=== PATIENT | male | born 1960 | race Hispanic/Latino ===

== ENCOUNTER 2019-09-26 06:45 | Day surgery (SDC) | payer BC ==
[2019-09-26] MEDS ORDERED: SODIUM CHLORIDE 0.9% 1000 ML 1,000 ML IV SCH (07:15)
--- NOTE | 2019-09-26 07:36 | Anesthesia Consultation ---
Anesthesia Consult and Med Hx Date of service: 09/26/19 - Airway Anesthetic Teeth Evaluation: Good, Crowns ROM Head & Neck: Adequate Mental/Hyoid Distance: Inadequate Mallampati Class: Class II Intubation Access Assessment: Probably Good - Pulmonary Exam CTA: Yes - Cardiac Exam Cardiac Exam: RRR - Pre-Operative Health Status ASA Pre-Surgery Classification: ASA2 Proposed Anesthetic Plan: MAC - Pulmonary Hx Smoking: No (Quit in January 2019 adter 20 years) Hx Asthma: No Hx Respiratory Symptoms: No SOB: No COPD: No Hx Sleep Apnea: No - Cardiovascular System Hx Hypertension: Yes - Central Nervous System Hx Neuromuscular Disorder: No Hx Seizures: No Hx Back Pain: No Hx Psychiatric Problems: Yes (Anxiety) - Gastrointestinal Hx Ulcer: Yes Hx Gastroesophageal Reflux Disease: Yes - Endocrine Hx Renal Disease: No Hx Liver Disease: No Hx Non-Insulin Dependent Diabetes: No - Other Systems Hx Alcohol Use: No Hx Obesity: Yes (BMI- 35.3kg) - Additional Comments Anesthesia Medical History Comments: Patient denied previous anesthesia complications.
--- NOTE | 2019-09-26 07:38 | Anesthesia Day of Surgery ---
Anesthesia Day of Surgery - Day of Surgery Patient Examined: Yes Patient H&P Reviewed: Yes Patient is NPO: Yes
[2019-09-26] MEDS ORDERED: PROPOFOL 200 MG/20 ML VIAL IV ONE ×3 (08:18)
--- NOTE | 2019-09-26 08:42 | Procedure Note ---
Date of procedure: 09/26/19 Pre-op diagnosis: Colon Polyp Screening Post-op diagnosis: other (No colon Polyps noted/Moderate, Left Colon Diverticuli/ Minor,Internal Hemorrhoid/Normal, Terminal, Ileal Mucosa) Procedure: Colonoscopy Anesthesia: MAC Surgeon: ERICA VIZCARRA Estimated blood loss: none Pathology: none Condition: stable Disposition: same day (Encourage fiber intake. Resume home medication and follow up in 1 to 2 weeks ([phone]).)
[2019-09-26 09:00] VITALS: BP 100/69
--- NOTE | 2019-09-26 10:09 | Post Anesthesia Evaluation ---
- Post Anesthesia Evaluation Patient Participated: Yes Airway Patent: Yes Stable Respiratory Function: Yes Nausea/Vomiting: No Temp > 96.8F: Yes Pain Manageable: Yes Adequeate Hydration: Yes Anesthesia Complications: No
--- NOTE | 2019-09-26 12:29 | Operative Report ---
PROCEDURE: Colonoscopy. INDICATIONS: A 59-year-old white male with a prior history of bleeding peptic ulcer disease, who had a colonoscopy done as well as colon polyp screening. Last colonoscopy was several years ago. DESCRIPTION OF PROCEDURE: The procedure was done after getting informed consent with MAC anesthesia in the GI lab at [facility] with assistance of the GI lab team, which included GI nurse, SHIKHA Rojas ____, genetic technologistAdrienne and with assistance of anesthesia. Initial rectal exam was unremarkable. Instrument was passed through the rectum onto the cecum, which was identified with ileocecal valve and the appendiceal orifice. The cecum was also viewed on the retroverted view and the terminal ileum was intubated. The terminal ileum showed normal mucosa. The cecum, ascending colon, transverse colon showed normal mucosa. There was moderate diverticular disease noted in the left colon and the rectum showed minor internal hemorrhoid. ASSESSMENT: Colon polyp screening. No colon polyps noted. Moderate left colon diverticula. Minor internal hemorrhoid. Normal terminal ileal mucosa. There was no bleeding associated with the procedure. No complications associated with the procedure. PLAN: To have the patient resume home medication. Encouraged the patient to take fiber supplements and follow up in the office in 1-2 weeks' time. JOB# [id number] REYNALDO/MIKE
== END 2019-09-26 06:46 | disposition home or self-care (01) ==
LOC: GIO 06:45
DX: Z12.11 Encounter for screening for malignant neoplasm of colon (principal); K64.8 Other hemorrhoids; K57.30 Diverticulosis of large intestine without perforation or abscess without bleeding; I10 Essential (primary) hypertension; K21.9 Gastro-esophageal reflux disease without esophagitis; E66.9 Obesity, unspecified; F41.9 Anxiety disorder, unspecified; Z79.899 Other long term (current) drug therapy; Z87.891 Personal history of nicotine dependence; Z68.35 Body mass index [BMI] 35.0-35.9, adult; Z98.890 Other specified postprocedural states
CPT/HCPCS: 45378; J2704; J7030